=== PATIENT | female | born 1990 | race Two or more races ===

== ENCOUNTER 2019-10-05 11:52 | Emergency (ER) | payer MEDICAID ==
[~2019-10-05] VITALS: Ht 152.4 cm; Wt 60.8 kg
[2019-10-05 12:09] VITALS: BP 114/72
--- NOTE | 2019-10-05 12:36 | NUR ---
Patient discharged to home in stable condition. Written and verbal after care instructions given. Patient verbalizes understanding of instruction. Pt ambulatory with a steady gait
--- NOTE | 2019-10-05 12:36 | NUR ---
TELEPHONE: [phone]
--- NOTE | 2019-10-05 12:36 | NUR ---
COVID SWAB DONE
== END 2019-10-05 12:38 | disposition home or self-care (01) ==
LOC: ER 11:52
DX: U07.1 COVID-19 (principal)